=== PATIENT | female | born 1930 | race Caucasian/White ===

== ENCOUNTER 2020-02-29 09:09 | Day surgery (SDC) | payer MEDICARE, BC ==
[~2020-02-29 09:09] MED LIST: Bisacodyl 5 MG Tab PO PRN; Docusate Sodium 100 MG Cap PO PRN; EPINEPHrine 1 MG/ML SDV ONE; Lactated Ringers 1,000 ML IV SCH; Lidocaine 1%/Sod Bicarbonate in NS 8.4% 1 ML Syringe IDERM PRN; Morphine 2 MG/ML SYRINGE IVPUSH PRN; Morphine 8 MG, EPINEPHrine 0.3 MG, Cefuroxime 750 MG, Ketorolac 30 MG, Sodium Chloride ... PRN; Naloxone 0.4 MG/ML SDV IVPUSH PRN; Ondansetron 4 MG/2 ML SDV IVPUSH PRN; Ondansetron 4 MG/2 ML SDV ONE; Propofol 200 MG/20 ML SDV ONE; Ropivacaine 0.5% 5 MG/ML 30 ML SDV ONE; Sennosides 8.6 MG Tab PO PRN; ceFAZolin 1 GM Vial ONE; fentaNYL 100 MCG/2 ML SDV ONE
[2020-02-29] MEDS ORDERED: Bupivacaine 0.25% 10 ML SDV ONE (09:59)
[2020-02-29] MEDS ORDERED: Vancomycin 1 GM SDV ONE (09:59)
--- NOTE | 2020-02-29 10:36 | PCM.PREANE ---
Preanesthetic Assessment - Procedure Proposed Procedure: Right Total Knee Replacement - Anesthesia/Transfusion/Family Hx Anesthesia History: Prior Anesthesia Without Reaction Family History of Anesthesia Reaction: No - Review of Systems General: No Symptoms Pulmonary: No Symptoms Cardiovascular: No Symptoms (ECHO EF 60-65%, Grade I dysfunction, mild elevated PAP at 40.9mmg) Gastrointestinal: Other (GERD) Neurological: Other (Scoliosis, Vertigo) Other: Reports: None - Physical Assessment NPO Status Date: 02/28/20 NPO Status Time: 23:59 Vital Signs: Last Vital Signs Temp 36.3 C 02/29/20 09:10 Pulse 84 02/29/20 09:10 Resp 16 02/29/20 09:10 BP 149/66 H 02/29/20 09:10 Pulse Ox 93 L 02/29/20 09:10 Height: 1.63 m Weight: 63.957 kg ASA Class: 2 Mental Status: Alert & Oriented x3 Airway Class: Mallampati = 2 Dentition: Reports: [place](s), Missing Tooth/Teeth Thyro-Mental Finger Breadths: 2 Mouth Opening Finger Breadths: 3 ROM/Head Extension: Full Lungs: Clear to Auscultation, Normal Respiratory Effort Cardiovascular: Regular Rate, Regular Rhythm - Lab Values: Laboratory Last Values MRSA (PCR) Negative 02/17/20 16:59 - Allergies Allergies/Adverse Reactions: Allergies Allergy/AdvReac Type Severity Reaction Status Date / Time ciprofloxacin [From Cipro] Allergy Cannot Verified 02/28/20 08:50 Remember cyclobenzaprine Allergy Cannot Verified 02/28/20 08:50 [From Flexeril] Remember erythromycin base Allergy Cannot Verified 02/28/20 08:50 Remember metronidazole [From Flagyl] Allergy Cannot Verified 02/28/20 08:50 Remember - Acknowledgements Anesthesia Type Planned: Spinal Pt an Appropriate Candidate for the Planned Anesthesia: Yes Alternatives and Risks of Anesthesia Discussed w Pt/Guardian: Yes Pt/Guardian Understands and Agrees with Anesthesia Plan: Yes PreAnesthesia Questionnaire HEENT History: Reports: Allergic Rhinitis, Impaired Vision, Other (See Below) Other HEENT History: wears glasses, impacted cerumen, ptosis of eyelid Cardiovascular History: Reports: High Cholesterol Respiratory History: Reports: None Gastrointestinal History: Reports: Colon Polyp, Other (See Below) Other Gastrointestinal History: abdominal pain, dysphagia, esophagitis Genitourinary History: Reports: None ACTING MANAGER History: Reports: None Musculoskeletal History: Reports: Back Pain, Chronic, Osteoarthritis, Other (See Below) Other Musculoskeletal History: joint pain, tibialsis tendinitis, left foot pain, knee injury Neurological History: Reports: Vertigo, Other (See Below) Other Neuro History: cervicalgia Psychiatric History: Reports: Depression Endocrine/Metabolic History: Reports: None Hematologic History: Reports: None Immunologic History: Reports: None Oncologic (Cancer) History: Reports: None Dermatologic History: Reports: None - Infectious Disease History Infectious Disease History: Reports: None - Past Surgical History HEENT Surgical History: Reports: Cataract Surgery, Tonsillectomy Cardiovascular Surgical History: Reports: Valve Replacement Respiratory Surgical History: Reports: None GI Surgical History: Reports: Colonoscopy, EGD Female Surgical History: Reports: Hysterectomy Male Surgical History: Reports: None Endocrine Surgical History: Reports: None Neurological Surgical History: Reports: None Musculoskeletal Surgical History: Reports: None Oncologic Surgical History: Reports: None Dermatological Surgical History: Reports: None - SUBSTANCE USE Tobacco Use Status *Q: Never Tobacco User Recreational Drug Use History: No - HOME MEDS Home Medications: Home Meds Magnesium 250 mg PO DAILY 02/10/14 [History] Omeprazole 20 mg PO DAILY 02/10/14 [History] Cholecalciferol (Vitamin D3) [Vitamin D3] 5,000 unit PO DAILY 02/28/20 [History] Cyanocobalamin (Vitamin B-12) [Vitamin B-12] 1,000 mcg PO DAILY 02/28/20 [History] Diclofenac Sodium 1 dose TOP QID PRN 02/28/20 [History] Fish Oil/[place]-3 Fatty Acids [Fish Oil 1,000 MG] 1 gm PO DAILY 02/28/20 [History] Losartan [Cozaar] 25 mg PO DAILY 02/28/20 [History] Multivitamin [Multi-Day Vitamins] 1 tab PO DAILY 02/28/20 [History] PEG 400/Hypromellose/Glycerin [Dry Eye Relief Eye Drops] 1 drop EYEBOTH QID PRN 02/28/20 [History] Pyridoxine HCl (Vitamin B6) [Vitamin B-6] 100 mg PO DAILY 02/28/20 [History] Ubidecarenone [Coq-10] 100 mg PO DAILY 02/28/20 [History] Acetaminophen/HYDROcodone [[place] 325-5 MG] 1 - 2 tab PO Q6H PRN #40 tablet 02/29/20 [Rx] Aspirin [Aspirin EC] 325 mg PO BID #80 tab 02/29/20 [Rx] Omeprazole 20 - 40 mg PO DAILY #80 capsule. 02/29/20 [Rx] - CURRENT (IN HOUSE) MEDS Current Meds: Current Medications Hydrocodone Bitart/Acetaminophen ([place] 325-5 Mg) 1 - 2 tab PO Q4H PRN PRN Reason: Pain Aspirin (Ecotrin) 325 mg PO BID [facility] Bisacodyl (Dulcolax) 5 mg PO DAILY PRN PRN Reason: Constipation Morphine Sulfate 8 mg/Epinephrine HCl 0.3 mg/Cefuroxime Sodium 750 mg/Ketorolac Tromethamine 30 mg/Sodium Chloride 7.9 ml 0 mg .XX ASDIRECTED PRN PRN Reason: Pain Stop: 02/29/20 12:00 Docusate Sodium (Colace) 100 mg PO BID PRN PRN Reason: Constipation Lactated Ringer's (Ringers, Lactated) 1,000 mls @ 125 mls/hr IV ASDIRECTED [facility] Stop: 02/29/20 23:00 Last Admin: 02/29/20 09:45 Dose: 125 mls/hr Documented by: Cefazolin Sodium/Dextrose 2 gm (/ Premix) 50 mls @ 100 mls/hr IV Q8H [facility] Stop: 02/29/20 23:29 Lidocaine/Sodium Bicarbonate (Buffered Lidocaine 1% In Ns 8.4%) 0.25 ml IDERM ONETIME PRN PRN Reason: Prior to IV Start Stop: 02/29/20 18:00 Last Admin: 02/29/20 09:44 Dose: 0.25 ml Documented by: Morphine Sulfate (Morphine) 2 mg IVPUSH Q2H PRN PRN Reason: Breakthrough Pain Naloxone HCl (Narcan) 0.1 mg IVPUSH Q5M PRN PRN Reason: Oversedation Ondansetron HCl (Zofran) 4 mg IVPUSH Q6H PRN PRN Reason: Nausea/Vomiting Senna (Senna) 8.6 mg PO BID PRN PRN Reason: Constipation Sodium Chloride (Saline Flush) 10 ml FLUSH ASDIRECTED PRN PRN Reason: Keep Vein Open Stop: 11/09/20 18:00 Discontinued Medications Bupivacaine HCl (Sensorcaine-Mpf 0.25%) Confirm Administered Dose 30 ml .ROUTE .STK-MED ONE Stop: 02/29/20 10:00 Cefazolin Sodium (Ancef) Confirm Administered Dose 2 gm .ROUTE .STK-MED ONE Stop: 02/29/20 08:52 Epinephrine HCl (Adrenalin) Confirm Administered Dose 1 mg .ROUTE .STK-MED ONE Stop: 02/29/20 07:19 Fentanyl (Sublimaze) Confirm Administered Dose 100 mcg .ROUTE .STK-MED ONE Stop: 02/29/20 08:51 Ondansetron HCl (Zofran) Confirm Administered Dose 4 mg .ROUTE .STK-MED ONE Stop: 02/29/20 08:50 Propofol (Diprivan 20 Ml) Confirm Administered Dose 400 mg .ROUTE .STK-MED ONE Stop: 02/29/20 08:51 Ropivacaine (Naropin 0.5%) Confirm Administered Dose 30 ml .ROUTE .STK-MED ONE Stop: 02/29/20 07:19 Tranexamic Acid (Cyklokapron) Confirm Administered Dose 1,000 mg .ROUTE .STK-MED ONE Stop: 02/29/20 10:00 Vancomycin HCl (Vancomycin) Confirm Administered Dose 1 gm .ROUTE .STK-MED ONE Stop: 02/29/20 10:00
[2020-02-29] MEDS ORDERED: Lactated Ringers 1,000 ML ONE (12:10)
[2020-02-29] MEDS ORDERED: Carboxymethylcellulose Sodium 1% Ophth Gel 15 ML Bottle EYEBOTH PRN (12:12)
--- NOTE | 2020-02-29 12:28 | PCM.POSTAN ---
POST ANESTHESIA ASSESSMENT - MENTAL STATUS Mental Status: Alert, Oriented - VITAL SIGNS Vital Signs: Last Vital Signs Temp 36.3 C 02/29/20 09:10 Pulse 84 02/29/20 09:10 Resp 16 02/29/20 09:10 BP 149/66 H 02/29/20 09:10 Pulse Ox 93 L 02/29/20 09:10 - RESPIRATORY Respiratory Status: Respiratory Rate WNL, Airway Patent, O2 Saturation Stable, Supplemental Oxygen - CARDIOVASCULAR CV Status: Pulse Rate WNL, Blood Pressure Stable - GASTROINTESTINAL GI Status: No Symptoms - PAIN Pain Score: 0 - POST OP HYDRATION Hydration Status: Adequate & Stable
[2020-02-29] MEDS ORDERED: diphenhydrAMINE 50 MG/ML SDV IVPUSH PRN (12:29)
[2020-02-29] MEDS ORDERED: Ondansetron 4 MG/2 ML SDV IVPUSH PRN (12:29)
[2020-02-29] MEDS ORDERED: fentaNYL 100 MCG/2 ML SDV IVPUSH PRN ×3 (12:29→12:32)
[2020-02-29] MEDS ORDERED: fentaNYL 100 MCG/2 ML SDV ONE (12:34)
[2020-02-29] MEDS: Acetaminophen/HYDROcodone 325-5 MG Tab PO PRN ×3 (13:27→22:42)
--- NOTE | 2020-02-29 13:38 | CR ---
PROCEDURE INFORMATION: Exam: XR Right Knee Exam date and time: 02/29/2020 12:58 PM Age: 89 years old Clinical indication: Device placement; Joint replacement hardware; Patient HX: Post op total right knee replacement films TECHNIQUE: Imaging protocol: XR Right knee. Views: 1 or 2 views. COMPARISON: No relevant prior studies available. FINDINGS: Bones/joints: Right total knee replacement in place without evidence of complications. There is no evidence of joint malalignment or dislocation. Soft tissues: Normal. Other findings: Air-fluid level present within the joint space. Findings consistent with postoperative changes. IMPRESSION: 1. Right total knee replacement in place without evidence of complications. 2. Air-fluid level present within the joint space. Findings consistent with postoperative changes. 3. No evidence of acute dislocation. Thank you for allowing us to participate in the care of your patient. Dictated and Authenticated by: Adiel Quinn DO 02/29/2020 2:29 PM Central Time ([place] & [place]) MTDDaniela
--- NOTE | 2020-02-29 14:44 | PCM48HPAN ---
Post Anesthesia Note - EVALUATION WITHIN 48HRS OF ANESTHETIC Vital Signs in Normal Range: Yes Patient Participated in Evaluation: Yes Respiratory Function Stable: Yes Airway Patent: Yes Cardiovascular Function Stable: Yes Hydration Status Stable: Yes Pain Control Satisfactory: Yes Nausea and Vomiting Control Satisfactory: Yes Mental Status Recovered: Yes Vital Signs: Last Vital Signs Temp 36.9 C 02/29/20 13:20 Pulse 88 02/29/20 13:20 Resp 16 02/29/20 13:20 BP 120/57 L 02/29/20 13:20 Pulse Ox 94 L 02/29/20 13:20
[2020-02-29] MEDS: ceFAZolin 2 GM in Premix Bag 1 BAG IV SCH (18:51)
[2020-02-29] MEDS: Sodium Chloride 0.9% 10 ML Syringe FLUSH PRN (19:00)
[2020-03-01] MEDS: ceFAZolin 2 GM in Premix Bag 1 BAG IV SCH ×2 (05:25→10:56)
[2020-03-01] MEDS: Acetaminophen/HYDROcodone 325-5 MG Tab PO PRN ×2 (05:26→12:42)
[2020-03-01] MEDS: Pantoprazole 40 MG Tab.CR PO SCH ×2 (05:38→06:48)
--- NOTE | 2020-03-01 07:25 | PCM48HPAN ---
Post Anesthesia Note - EVALUATION WITHIN 48HRS OF ANESTHETIC Vital Signs in Normal Range: Yes Patient Participated in Evaluation: Yes Respiratory Function Stable: Yes Airway Patent: Yes Cardiovascular Function Stable: Yes Hydration Status Stable: Yes Pain Control Satisfactory: Yes Nausea and Vomiting Control Satisfactory: Yes Mental Status Recovered: Yes Vital Signs: Last Vital Signs Temp 36.1 C 03/01/20 05:37 Pulse 73 03/01/20 05:37 Resp 14 03/01/20 05:37 BP 114/51 L 03/01/20 05:37 Pulse Ox 96 03/01/20 05:37
--- NOTE | 2020-03-01 08:47 | PCM.SURGPN ---
- General Info Date of Service: 03/01/20 POD#: 1 Functional Status: Reports: Pain Controlled, Tolerating Diet, Ambulating, Urinating, Incentive Spirometry, Other (The pt states she has noted nausea and dizziness today. She reports taking 2 [place] "on an empty stomach".) - Patient Data Vitals - Most Recent: Last Vital Signs Temp 97.2 F 03/01/20 08:09 Pulse 63 03/01/20 08:09 Resp 14 03/01/20 08:09 BP 106/48 L 03/01/20 08:09 Pulse Ox 96 03/01/20 08:09 Weight - Most Recent: 141 lb Lab Results Last 24 Hrs: Laboratory Results - last 24 hr 03/01/20 Range/Units 07:23 WBC 4.48 (3.98-10.04) K/mm3 RBC 3.60 L (3.98-5.22) M/mm3 Hgb 11.1 L (11.2-15.7) gm/dl Hct 34.5 (34.1-44.9) % MCV 95.8 H (79.4-94.8) fl MCH 30.8 (25.6-32.2) pg MCHC 32.2 (32.2-35.5) g/dl RDW Std Deviation 53.5 H (36.4-46.3) fL Plt Count 147 L (182-369) K/mm3 MPV 11.1 (9.4-12.3) fl Med Orders - Current: Current Medications Hydrocodone Bitart/Acetaminophen ([place] 325-5 Mg) 1 - 2 tab PO Q4H PRN PRN Reason: Pain Last Admin: 03/01/20 05:26 Dose: 2 tab Documented by: Artificial Tears (Refresh Liquigel 1%) 0 ml EYEBOTH QID PRN PRN Reason: Dry Eyes Aspirin (Halfprin) 81 mg PO BID [facility] Bisacodyl (Dulcolax) 5 mg PO DAILY PRN PRN Reason: Constipation Cholecalciferol (Vitamin D3) 5,000 unit PO DAILY [facility] Cyanocobalamin (Vitamin B12) 1,000 mcg PO DAILY [facility] Docusate Sodium (Colace) 100 mg PO BID PRN PRN Reason: Constipation Cefazolin Sodium/Dextrose 2 gm (/ Premix) 50 mls @ 100 mls/hr IV Q8H [facility] Stop: 03/01/20 11:29 Last Admin: 03/01/20 05:25 Dose: 100 mls/hr Documented by: Losartan Potassium (Cozaar) 25 mg PO DAILY [facility] Magnesium Oxide (Magnesium Oxide) 400 mg PO DAILY [facility] Morphine Sulfate (Morphine) 2 mg IVPUSH Q2H PRN PRN Reason: Breakthrough Pain Multivitamins (Thera) 1 each PO DAILY [facility] Naloxone HCl (Narcan) 0.1 mg IVPUSH Q5M PRN PRN Reason: Oversedation Ondansetron HCl (Zofran) 4 mg IVPUSH Q6H PRN PRN Reason: Nausea/Vomiting Pantoprazole Sodium (Protonix) 40 mg PO DAILY@0700 [facility] Last Admin: 03/01/20 06:48 Dose: Not Given Documented by: Pyridoxine HCl (Vitamin B6-Pyridoxine) 100 mg PO DAILY [facility] Senna (Senna) 8.6 mg PO BID PRN PRN Reason: Constipation Discontinued Medications Aspirin (Ecotrin) 325 mg PO BID [facility] Bupivacaine HCl (Sensorcaine-Mpf 0.25%) Confirm Administered Dose 30 ml .ROUTE .STK-MED ONE Stop: 02/29/20 10:00 Last Admin: 02/29/20 11:45 Dose: 30 ml Documented by: Cefazolin Sodium (Ancef) Confirm Administered Dose 2 gm .ROUTE .STK-MED ONE Stop: 02/29/20 08:52 Morphine Sulfate 8 mg/Epinephrine HCl 0.3 mg/Cefuroxime Sodium 750 mg/Ketorolac Tromethamine 30 mg/Sodium Chloride 7.9 ml 0 mg .XX ASDIRECTED PRN PRN Reason: Pain Stop: 02/29/20 12:00 Last Admin: 02/29/20 11:48 Dose: 788.3 mg Documented by: Diphenhydramine HCl (Benadryl) 25 mg IVPUSH Q6H PRN PRN Reason: itching Stop: 02/29/20 15:00 Epinephrine HCl (Adrenalin) Confirm Administered Dose 1 mg .ROUTE .STK-MED ONE Stop: 02/29/20 07:19 Fentanyl (Sublimaze) Confirm Administered Dose 100 mcg .ROUTE .STK-MED ONE Stop: 02/29/20 08:51 Fentanyl (Sublimaze) 50 mcg IVPUSH Q5M PRN PRN Reason: pain Stop: 02/29/20 15:00 Last Admin: 02/29/20 12:37 Dose: 50 mcg Documented by: Fentanyl (Sublimaze) Confirm Administered Dose 100 mcg .ROUTE .STK-MED ONE Stop: 02/29/20 12:35 Last Admin: 02/29/20 19:51 Dose: Not Given Documented by: Lactated Ringer's (Ringers, Lactated) 1,000 mls @ 125 mls/hr IV ASDIRECTED [facility] Stop: 02/29/20 23:00 Last Admin: 02/29/20 09:45 Dose: 125 mls/hr Documented by: Lactated Ringer's (Ringers, Lactated) Confirm Administered Dose 1,000 mls @ as directed .ROUTE .STK-MED ONE Stop: 02/29/20 12:11 Lidocaine/Sodium Bicarbonate (Buffered Lidocaine 1% In Ns 8.4%) 0.25 ml IDERM ONETIME PRN PRN Reason: Prior to IV Start Stop: 02/29/20 18:00 Last Admin: 02/29/20 09:44 Dose: 0.25 ml Documented by: Miscellaneous Medication (Phenylephrine 1 Mg/10 Ml-Ns) Confirm Administered Dose 1 mg .ROUTE .STK-MED ONE Stop: 02/29/20 11:12 Non-Formulary Medication (Ubidecarenone) 100 mg PO DAILY [facility] Ondansetron HCl (Zofran) Confirm Administered Dose 4 mg .ROUTE .STK-MED ONE Stop: 02/29/20 08:50 Ondansetron HCl (Zofran) 4 mg IVPUSH ONETIME PRN PRN Reason: Nausea/Vomiting Stop: 02/29/20 15:00 Propofol (Diprivan 20 Ml) Confirm Administered Dose 400 mg .ROUTE .STK-MED ONE Stop: 02/29/20 08:51 Ropivacaine (Naropin 0.5%) Confirm Administered Dose 30 ml .ROUTE .STK-MED ONE Stop: 02/29/20 07:19 Sodium Chloride (Saline Flush) 10 ml FLUSH ASDIRECTED PRN PRN Reason: Keep Vein Open Stop: 02/29/20 18:00 Last Admin: 02/29/20 19:00 Dose: 10 ml Documented by: Tranexamic Acid (Cyklokapron) Confirm Administered Dose 1,000 mg .ROUTE .STK-MED ONE Stop: 02/29/20 10:00 Last Admin: 02/29/20 11:59 Dose: 1,000 mg Documented by: Vancomycin HCl (Vancomycin) Confirm Administered Dose 1 gm .ROUTE .STK-MED ONE Stop: 02/29/20 10:00 Last Admin: 02/29/20 11:59 Dose: 1 gm Documented by: - Exam Wound/Incisions: Dressing Dry and Intact General: Alert, Cooperative, No Acute Distress Lungs: Normal Respiratory Effort Extremities: Other (NVS inact for RLE. Cece's negative.) Sepsis Event Note - Evaluation Sepsis Screening Result: No Definite Risk - Focused Exam Vital Signs: Vital Signs Temp Pulse Resp BP Pulse Ox Pulse Ox 03/01/20 08:09 97.2 F 63 14 106/48 L 96 03/01/20 05:37 97.0 F 73 14 114/51 L 96 03/01/20 04:52 96 02/29/20 23:46 90 L 02/29/20 21:40 97.2 F 65 14 119/66 95 - Problem List Review Problem List Initiated/Reviewed/Updated: Yes - My Orders Last 24 Hours: Active Orders 24 hr Category Date Time Status Communication Order [RC] ROUTINE Care 02/29/20 12:29 Active Notify Provider [RC] ASDIRECTED Care 02/29/20 12:29 Active Ready for Discharge [RC] PER UNIT ROUTINE Care 03/01/20 08:45 Ordered Regular Diet [DIET] Diet 02/29/20 Lunch Active COMPREHENSIVE METABOLIC PN,CMP [CHEM] AM Lab 03/01/20 07:23 Received Aspirin [Halfprin] Med 03/01/20 09:00 Active 81 mg PO BID Carboxymethylcellulose Sodium [Refresh Liquigel 1%] Med 02/29/20 12:12 Active 0 ml EYEBOTH QID PRN Cholecalciferol (Vitamin D3) [Vitamin D3] Med 03/01/20 09:00 Active 5,000 unit PO DAILY Cyanocobalamin (Vitamin B12) [Vitamin B12] Med 03/01/20 09:00 Active 1,000 mcg PO DAILY Losartan [Cozaar] Med 03/01/20 09:00 Active 25 mg PO DAILY Magnesium Oxide Med 03/01/20 09:00 Active 400 mg PO DAILY Multivitamins,Therapeutic [Thera] Med 03/01/20 09:00 Active 1 each PO DAILY Pantoprazole [ProTONIX] Med 03/01/20 07:00 Active 40 mg PO DAILY@0700 Vitamin B6-pyridOXINE Med 03/01/20 09:00 Active 100 mg PO DAILY ceFAZolin [Ancef] 2 gm Med 02/29/20 19:00 Active Premix Bag 1 bag IV Q8H Medication Orders Hydrocodone Bitart/Acetaminophen ([place] 325-5 Mg) 1 - 2 tab PO Q4H PRN PRN Reason: Pain Last Admin: 03/01/20 05:26 Dose: 2 tab Documented by: Admin: 02/29/20 22:42 Dose: 2 tab Documented by: Admin: 02/29/20 18:13 Dose: 2 tab Documented by: Admin: 02/29/20 13:27 Dose: 1 tab Documented by: ALUIVAL Artificial Tears (Refresh Liquigel 1%) 0 ml EYEBOTH QID PRN PRN Reason: Dry Eyes Aspirin (Halfprin) 81 mg PO BID [facility] Bisacodyl (Dulcolax) 5 mg PO DAILY PRN PRN Reason: Constipation Cholecalciferol (Vitamin D3) 5,000 unit PO DAILY [facility] Cyanocobalamin (Vitamin B12) 1,000 mcg PO DAILY [facility] Docusate Sodium (Colace) 100 mg PO BID PRN PRN Reason: Constipation Cefazolin Sodium/Dextrose 2 gm (/ Premix) 50 mls @ 100 mls/hr IV Q8H [facility] Stop: 03/01/20 11:29 Last Admin: 03/01/20 05:25 Dose: 100 mls/hr Documented by: Infusion: 02/29/20 19:21 Dose: 100 mls/hr Documented by: Admin: 02/29/20 18:51 Dose: 100 mls/hr Documented by: DIEGO Losartan Potassium (Cozaar) 25 mg PO DAILY [facility] Magnesium Oxide (Magnesium Oxide) 400 mg PO DAILY [facility] Morphine Sulfate (Morphine) 2 mg IVPUSH Q2H PRN PRN Reason: Breakthrough Pain Multivitamins (Thera) 1 each PO DAILY [facility] Naloxone HCl (Narcan) 0.1 mg IVPUSH Q5M PRN PRN Reason: Oversedation Ondansetron HCl (Zofran) 4 mg IVPUSH Q6H PRN PRN Reason: Nausea/Vomiting Pantoprazole Sodium (Protonix) 40 mg PO DAILY@0700 [facility] Last Admin: 03/01/20 06:48 Dose: Not Given Documented by: [email or web address] Admin: 03/01/20 05:38 Dose: 40 mg Documented by: JADEN Pyridoxine HCl (Vitamin B6-Pyridoxine) 100 mg PO DAILY [facility] Senna (Senna) 8.6 mg PO BID PRN PRN Reason: Constipation - Assessment Assessment (Free Text/Narrative):: POD#1 - s/p right TKA - Plan Plan (Free Text/Narrative):: 1. Hgb 11.1. 2. Suspect discharge to home today if inpt therapy goals met and doing well. 3. Pt would benefit from Home Health therapies and nursing. The visit today will serve as the [id number] visit for [place]. The patient would benefit from Home Health nursing services. jail services are required to assist with monitoring of the pt's surgical wound, medication management, pain management, monitoring for signs and symptoms of post-surgical complication. The patient would benefit from Home Health PT and OT services as therapy will assist with gait training, strengthening, promoting endurance with mobility, as well as evaluation for home safety and assessment of ADLs. The patient is homebound at this time due to recent surgery and mobility challenges. The patient uses a FWW for mobility. The patient's primary care provider is Dr. Awan. Dr. Rene
[2020-03-01] MEDS ORDERED: Cyanocobalamin (Vitamin B12) 1,000 MCG Tab PO SCH (09:00)
[2020-03-01] MEDS ORDERED: Non-Formulary Medication 1 Each (Ubidecarenone 100 MG) PO SCH (09:00)
[2020-03-01] MEDS ORDERED: Magnesium Oxide 400 MG Tab PO SCH (09:00)
[2020-03-01] MEDS ORDERED: Losartan 25 MG Tab PO SCH (09:00)
[2020-03-01] MEDS ORDERED: Vitamin B6-pyridOXINE 50 MG Tab PO SCH (09:00)
[2020-03-01] MEDS ORDERED: Multivitamins,Therapeutic Tab PO SCH (09:00)
[2020-03-01] MEDS ORDERED: Aspirin 81 MG Tab.EC PO SCH (09:00)
[2020-03-01] MEDS ORDERED: Aspirin 325 MG Tab.EC PO SCH (09:00)
[2020-03-01] MEDS ORDERED: Cholecalciferol (Vitamin D3) 5,000 UNIT Cap PO SCH (09:00)
[2020-03-01] MEDS: Sodium Chloride 0.9% 10 ML Syringe FLUSH PRN (10:58)
[2020-03-01] MEDS ORDERED: Calcium Carbonate 500 MG Tab.Chew PO PRN (13:38)
[2020-03-01 17:59] VITALS: BP 112/40; PULSE 82
--- NOTE | 2020-03-11 12:27 | PCM.OPNOTE ---
- General Post-Op/Procedure Note Date of Surgery/Procedure: 02/29/20 Operative Procedure(s): right total knee arthroplasty Pre Op Diagnosis: right knee osteoarthrosis Post-Op Diagnosis: Same Anesthesia Technique: Local, MAC, Spinal Primary Surgeon: Woodrow Rene Anesthesia Provider: Indu Gordon Auto Tester: Margy Renae Auto Tester: Tania Strickland in mLs: 5 Complications: None Condition: Good Free Text/Narrative:: 07/24 TS 9mm 29x9
--- NOTE | 2020-03-11 12:49 | OR ---
DATE OF OPERATION: 02/29/2020 SURGEON: Woodrow Rene MD OPERATION PERFORMED: Right total knee arthroplasty. PREOPERATIVE DIAGNOSIS: Right knee osteoarthrosis. POSTOPERATIVE DIAGNOSIS: Right knee osteoarthrosis. ANESTHESIA: Local MAC with spinal. ANESTHESIA PROVIDER: Indu Hollis. FIRST BREAKER FEEDER: 1. Margy Renae PA-C. 2. Tania Strickland LPN. ESTIMATED BLOOD LOSS: 5 mL. COMPLICATIONS: None. CONDITION: Stable. IMPLANTS: 1. [place] size 4 cemented PS femur. 2. [place] size 4 cemented universal tibial base plate. 3. Thuy size 4, 9 mm TS polyethylene insert. 4. [place] size 29 x 9 mm cemented asymmetric patella. DESCRIPTION OF PROCEDURE: The patient was identified in the preop holding area. Proper site was marked and identified by the surgeon. The patient was taken back to the operating theater. After adequate anesthesia, the patient's right lower extremity had a nonsterile tourniquet applied and it was sterilely prepped and draped in the usual sterile fashion. OR time-out was performed. The patient received 2 g IV Ancef. At this time, the right lower extremity was exsanguinated. Tourniquet was insufflated to 300 mmHg. Standard medial parapatellar incision was made. Medial parapatellar arthrotomy was created. Deep fibers of the MCL were raised and anterior fat pad was resected. At this time, attention was turned to the patella. Patella measured 21, it was resected to a 13 for a 29 x 9 mm patella. Drill holes were then drilled and found to be in adequate position. The drill was then drilled in the distal femur and the intramedullary distal femoral cutting guide was then placed. 8 mm was resected off the distal femur and was found to be an adequate resection. Sizing guide was placed. It was found to be a size 4 cemented PS femur that was shown on the implant record at the beginning of this dictation. The drill holes were drilled for the epicondylar axis using [place] line and epicondyles as reference. At this time, the 4-in-1 cutting block was placed. An anterior posterior and anterior and posterior chamfer cuts were then completed. Box cut was completed at this time. Attention was turned to the tibia. The posterior medial lateral retractors were placed. The extramedullary tibial guide was placed. It was placed in the old footprint of the ACL. It was aligned with the center of the ankle and 0 degrees of slope, 9 mm was then resected off the unaffected side. There was found to be an acceptable reduction. At this time, posterior osteophytes were removed along with medial and lateral meniscus. A trial implant was placed with a correct sized tibia that was mentioned at the beginning of the dictation. A Thuy size 4, 9 mm TS polyethylene insert was then placed. The patient's knee was brought through range of motion. The patella was tracking centrally and was stable to varus and valgus stress. Alignment was found to be roughly at 0 degrees. The tibia was stamped and drilled in proper rotation. The universal tibial base plate was impacted in place. Next, the [place] size 4 cemented PS femur impacted into place and the Thuy size 4, 9 mm TS polyethylene insert was placed. The patient's knee was brought into full extension. The patella was then cemented in place at this time. One liter pulse lavage normal saline was irrigated through the knee along with Irricept. Periarticular injection was then completed. The patient's knee was brought through a range of motion. Once the cement had time to set up and it was found to be stable to varus valgus stress, the patella was tracking centrally with full range of motion. At this time, a #2 barbed suture was used for closure of the medial parapatellar arthrotomy. Topical tranexamic acid was placed. 2-0 Vicryl was used subcutaneously, Prineo was used for the skin. The patient tolerated the procedure well and was sent to the PACU in stable condition. MMYOSEF /[id number] ALEJANDRA
== END 2020-03-01 16:15 | disposition home or self-care (01) ==
LOC: JD.SDS 09:09 → JD.OB 09:09 → JD.SDS 03-01 16:15
PROVIDERS: ATTEND Orthopaedic Surgery
DX: M17.0 Bilateral primary osteoarthritis of knee (principal); I10 Essential (primary) hypertension; F32.9 Major depressive disorder, single episode, unspecified; E78.00 Pure hypercholesterolemia, unspecified; G89.29 Other chronic pain; Z79.899 Other long term (current) drug therapy; Z88.1 Allergy status to other antibiotic agents; Z98.890 Other specified postprocedural states; Z88.8 Allergy status to other drugs, medicaments and biological substances
CPT/HCPCS: 27447; 36415; 73560; 80053; 85027; 87641; 94760; 97110; 97116; 97161; 97165; 97530; 97535; A9270; C1713; C1776; J0171; J0690; J0697; J1885; J2270; J2370; J2405; J2704; J2795; J3010; J3370; J3490; J7120; 01402; 64450

== ENCOUNTER 2021-09-06 08:23 | Day surgery (SDC) | payer MEDICARE, BC ==
[~2021-09-06 08:23] MED LIST changes: -Bisacodyl 5 MG Tab PO PRN; -Docusate Sodium 100 MG Cap PO PRN; -EPINEPHrine 1 MG/ML SDV ONE; -Morphine 2 MG/ML SYRINGE IVPUSH PRN; -Morphine 8 MG, EPINEPHrine 0.3 MG, Cefuroxime 750 MG, Ketorolac 30 MG, Sodium Chloride ... PRN; -Naloxone 0.4 MG/ML SDV IVPUSH PRN; -Ondansetron 4 MG/2 ML SDV IVPUSH PRN; -Ondansetron 4 MG/2 ML SDV ONE; -Propofol 200 MG/20 ML SDV ONE; -Ropivacaine 0.5% 5 MG/ML 30 ML SDV ONE; -Sennosides 8.6 MG Tab PO PRN; +Sodium Chloride 0.9% 10 ML Syringe FLUSH PRN; +Sodium Chloride 0.9% 10 ML Syringe FLUSH SCH; -ceFAZolin 1 GM Vial ONE; -fentaNYL 100 MCG/2 ML SDV ONE
[2021-09-06] MEDS ORDERED: Bupivacaine 0.25% 10 ML SDV ONE (08:33)
[2021-09-06] MEDS ORDERED: fentaNYL 100 MCG/2 ML SDV ONE ×2 (08:51→10:31)
[2021-09-06] MEDS ORDERED: Propofol 200 MG/20 ML SDV ONE (08:51)
[2021-09-06] MEDS ORDERED: Ondansetron 4 MG/2 ML SDV ONE (08:55)
[2021-09-06] MEDS ORDERED: diphenhydrAMINE 50 MG/ML SDV ONE (08:55)
[2021-09-06] MEDS ORDERED: Dexamethasone 4 MG/ML 5 ML MDV ONE (08:55)
[2021-09-06] MEDS ORDERED: Lidocaine 1% 5 ML VIAL ONE (08:56)
[2021-09-06] MEDS ORDERED: ceFAZolin 1 GM Vial ONE (09:01)
[2021-09-06] MEDS ORDERED: ePHEDrine 50 MG/ML SDV ONE (09:46)
[2021-09-06] MEDS: EPINEPHrine 1 MG/ML 30 ML MDV IRR SCH (09:59)
[2021-09-06] MEDS ORDERED: Ketorolac 15 MG/ML SDV ONE (10:31)
[2021-09-06] MEDS ORDERED: fentaNYL 100 MCG/2 ML SDV IVPUSH PRN (10:46)
[2021-09-06] MEDS ORDERED: Ondansetron 4 MG/2 ML SDV IVPUSH PRN (10:46)
[2021-09-06] MEDS ORDERED: traMADol 50 MG Tab PO PRN (11:21)
[2021-09-06 16:29] VITALS: BP 127/63; PULSE 84
[2021-09-07] MEDS: EPINEPHrine 1 MG/ML 30 ML MDV IRR SCH (09:59)
== END 2021-09-06 13:37 | disposition home or self-care (01) ==
LOC: JD.SDS 08:23
PROVIDERS: ATTEND Orthopaedic Surgery
DX: T84.84XA Pain due to internal orthopedic prosthetic devices, implants and grafts, initial encounter (principal); M24.661 Ankylosis, right knee; I10 Essential (primary) hypertension; E78.5 Hyperlipidemia, unspecified; K21.9 Gastro-esophageal reflux disease without esophagitis; M17.12 Unilateral primary osteoarthritis, left knee; H54.7 Unspecified visual loss; E78.00 Pure hypercholesterolemia, unspecified; Z88.1 Allergy status to other antibiotic agents; Z79.899 Other long term (current) drug therapy
CPT/HCPCS: 29875; J0171; J0690; J1100; J1200; J1885; J2370; J2405; J2704; J3010; J7120; 01400; J3490